=== PATIENT | female | born 1960 | race Caucasian/White ===

== ENCOUNTER 2025-05-31 20:42 | Emergency (ER) | payer SELFPAY ==
[2025-05-31 21:16] LABS: BASOPHILS ABSOLUTE AUTO 0.04 K/uL (0.00-0.20); BASOPHILS PERCENT AUTO 0.5 % (0.0-1.0); EOSINOPHILS ABSOLUTE AUTO 0.23 K/uL (0.00-0.45); EOSINOPHILS PERCENT AUTO 3.0 % (0.0-6.0); IMMATURE GRAN ABSOLUTE AUTO 0.02 K/uL (0.00-0.05); IMMATURE GRAN PERCENT AUTO 0.3 % (0.0-0.4); LYMPHOCYTES ABSOLUTE AUTO 1.57 K/uL (1.00-4.80); LYMPHOCYTES PERCENT AUTO 20.2 % (24.0-44.0); MEAN PLATELET VOLUME 11.1 fL (9.4-12.3); MONOCYTES ABSOLUTE AUTO 0.48 K/uL (0.00-0.80); MONOCYTES PERCENT AUTO 6.2 % (0.0-8.0); NEUTROPHILS ABSOLUTE AUTO 5.44 K/uL (1.80-7.70); NEUTROPHILS PERCENT AUTO 69.8 % (41.0-71.0); NRBC ABSOLUTE 0.00 K/uL (0.00-0.02); NRBC PERCENT 0.0 /100WBC (0.0-0.2); PLATELET COUNT,PLT 162 K/uL (150-400); RED BLOOD CELL COUNT 4.38 M/uL (4.10-5.30); WHITE BLOOD CELL COUNT,WBC 7.78 K/uL (3.9-11.3)
[2025-05-31 21:56] LABS: A/G RATIO 1.3 (0.9-1.6); ALANINE AMINOTRANSFERASE,ALT 109.0 IU/L (14-63); ASPARTATE AMNIOTRANSFERASE,AST 114.0 IU/L (15-37); BILIRUBIN TOTAL 0.4 mg/dL (0.2-1.0); BLOOD UREA NITROGEN,BUN 12.0 mg/dL (7.0-18.0); CARBON DIOXIDE,CO2 23.8 mmol/L (21.0-32.0); CHLORIDE,CL 107.0 mmol/L (98-107); CREATININE 0.7 mg/dL (0.6-1.0); EST CRCL DRUG DOSING (CG) 64.02 mL/min; GLUCOSE RANDOM 102.0 mg/dL (74-106); POTASSIUM,K 3.0 mmol/L (3.5-5.1); PROTEIN TOTAL,TP 7.3 g/dL (6.4-8.2); SODIUM,NA 144.0 mmol/L (136-145)
[2025-05-31 22:00] LABS: ESTIMATED GFR 95.0 mL/min (>60)
== END 2025-05-31 23:03 | disposition home or self-care (01) ==
LOC: MW.ED 20:42
DX: R03.0 Elevated blood-pressure reading, without diagnosis of hypertension (principal); Z79.899 Other long term (current) drug therapy
CPT/HCPCS: 36415; 80053; 84484; 85025; 99283; A9270